=== PATIENT | female | born 1970 | race Caucasian/White ===

== ENCOUNTER 2019-01-18 06:20 | Emergency (ER) | payer BC, SELFPAY ==
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
== END 2019-01-18 08:55 | disposition home or self-care (01) ==
LOC: ERS 06:20
DX: M54.2 Cervicalgia (principal); M54.5 Low back pain; F17.210 Nicotine dependence, cigarettes, uncomplicated; V89.2XXA Person injured in unspecified motor-vehicle accident, traffic, initial encounter
CPT/HCPCS: 72070; 72100; 72125

== ENCOUNTER 2019-03-28 09:09 | Emergency (ER) | payer SELFPAY | END 2019-03-28 10:35 | disposition home or self-care (01) | LOC: ERS 09:09 | DX: H66.92 Otitis media, unspecified, left ear (principal) | CPT/HCPCS: 99282 ==

== ENCOUNTER 2020-03-19 13:14 | Emergency (ER) | payer OTHER | END 2020-03-19 15:00 | disposition home or self-care (01) | LOC: ERS 13:14 | DX: H66.93 Otitis media, unspecified, bilateral (principal) | CPT/HCPCS: 99282 ==

== ENCOUNTER 2020-10-26 11:15 | Emergency (ER) | payer BC, SELFPAY ==
[2020-10-26] MEDS ORDERED: Iopamidol-370 76% 500 ML 1 ML ONE (11:16)
[2020-10-26] MEDS ORDERED: Acetaminophen 500 MG TAB ONE (11:51)
[2020-10-26 11:59] LABS: #Eosinphils 0.2 thou/uL (0.0-0.7); #Lymphocytes 2.1 thou/uL (1.20-3.40); #Monocytes 0.6 thou/uL (0.11-0.59); #Neutrophils 10.6 thou/uL (1.40-6.50); %Basophils 0.3 % (0.0-1.0); %Eosinophils 1.3 % (0.0-10.0); %Lymphocytes 15.3 % (21.0-51.0); %Monocytes 4.7 % (0.0-10.0); %Neutrophils 78.5 % (42.0-75.0); Hemoglobin 12.9 g/dL (12.0-16.0); Mean Corpuscular HGB CONC 33.6 g/dL (32.0-36.0); Mean Corpuscular Hemoglobin 31.8 pg (27.0-31.0); Mean Corpuscular Volume 94.6 fL (78.0-98.0); Mean Platelet Volume 6.6 fL (7.4-10.4); Platelet Count 421 thou/uL (130-400); RBC Distribution Width 12.5 % (11.5-14.5); Red Blood Cell (RBC) Count 4.08 mill/uL (4.20-5.40); White Blood Cell (WBC) Count 13.5 thou/uL (4.8-10.8)
[2020-10-26 12:05] LABS: PTT 34.1 sec (22.9-36.1); Prothrombin Time 13.1 sec (12.0-14.7)
[2020-10-26 12:09] LABS: BHCG - Serum Negative (NEGATIVE); Pregs Control Background? CLEAR/WHITE (CLR/WHITE); Pregs Control Bar Appear? YES (CONTROL BAR)
[2020-10-26 12:19] LABS: ALT (SGPT) 53 U/L (8-55); AST (SGOT) 28 U/L (5-34); Albumin 4.5 g/dL (3.5-5.0); Alkaline Phosphatase 97 U/L (40-110); Anion Gap 14 mmol/L (10-20); BUN (Urea Nitrogen) 9 mg/dL (7.0-18.7); Bilirubin, Total 0.3 mg/dL (0.2-1.2); Calc. Creatinine Clearance 0 mL/min (70-130); Calcium 9.9 mg/dL (7.8-10.44); Carbon Dioxide 27 mmol/L (22-29); Chloride 101 mmol/L (98-107); Globulin 3.1 g/dL (2.4-3.5); Glucose 140 mg/dL (70-105); Potassium 3.8 mmol/L (3.5-5.1); Protein, Total 7.6 g/dL (6.0-8.3); Sodium 138 mmol/L (136-145)
[2020-10-26 12:34] LABS: Thyroid Stimulating Hormone 0.9134 uIU/mL (0.35-4.94)
--- NOTE | 2020-10-26 12:45 | CT ---
Exam: Head CT without contrast HISTORY: Left arm tingling. Nausea and vomiting and headache times a day COMPARISON: none FINDINGS: Hemorrhage: No intraparenchymal hemorrhage or extra-axial hematoma. Brain parenchyma: Cortical shen-white matter differentiation is preserved. No mass effect or midline shift. Basilar cisterns are patent. Ventricular system: Ventricles and sulci are patent and symmetric. Calvarium: Stable canal up mastoidectomy changes bilaterally. There is opacification of the left midd le ear and residual left mastoid cavity. Sinuses and mastoid air cells: Adequate aeration of the paranasal sinuses IMPRESSION: 1. Bilateral canal wall up mastoidectomies. There is opacification of the left middle ear and left ma stoid cavity. Correlate for infectious or inflammatory process.
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
== END 2020-10-26 14:43 | disposition home or self-care (01) ==
LOC: ERS 11:15
DX: R51.9 Headache, unspecified (principal); R07.9 Chest pain, unspecified; K21.9 Gastro-esophageal reflux disease without esophagitis; E78.5 Hyperlipidemia, unspecified; E78.00 Pure hypercholesterolemia, unspecified; F17.210 Nicotine dependence, cigarettes, uncomplicated
CPT/HCPCS: 36415; 36416; 70450; 71275; 74174; 80053; 83880; 84443; 84484; 84703; 85025; 85610; 85730; 86850; 86900; 86901; 93005; Q9967

== ENCOUNTER 2021-05-15 13:53 | Outpatient (CLI) | payer BC | END 2021-05-15 13:54 | disposition home or self-care (01) | LOC: BICCT 13:53 | PROVIDERS: ATTEND Student in an Organized Health Care Education/Training Program | DX: H70.90 Unspecified mastoiditis, unspecified ear (principal); H74.8X2 Other specified disorders of left middle ear and mastoid; H72.91 Unspecified perforation of tympanic membrane, right ear; M19.09 Primary osteoarthritis, other specified site; Z98.890 Other specified postprocedural states | CPT/HCPCS: 70480 ==

== ENCOUNTER 2022-02-14 11:47 | Inpatient (IN) | payer BC, SELFPAY ==
[~2022-02-14 11:47] MED LIST: Iopamidol-370 76% 500 ML 1 ML ONE
[2022-02-14 12:20] LABS: #Basophils 0.1 thou/uL (0.0-0.2); #Eosinphils 0.3 thou/uL (0.0-0.7); #Lymphocytes 2.7 thou/uL (1.20-3.40); #Monocytes 0.7 thou/uL (0.11-0.59); #Neutrophils 4.9 thou/uL (1.40-6.50); %Basophils 0.7 % (0.0-1.0); %Monocytes 7.5 % (0.0-10.0); %Neutrophils 56.8 % (42.0-75.0); Hemoglobin 12.6 g/dL (12.0-16.0); Mean Corpuscular HGB CONC 34.6 g/dL (32.0-36.0); Mean Corpuscular Hemoglobin 32.6 pg (27.0-31.0); Mean Corpuscular Volume 94.4 fL (78.0-98.0); Mean Platelet Volume 7.1 fL (7.4-10.4); Platelet Count 354 thou/uL (130-400); RBC Distribution Width 12.2 % (11.5-14.5); Red Blood Cell (RBC) Count 3.88 mill/uL (4.20-5.40); White Blood Cell (WBC) Count 8.7 thou/uL (4.8-10.8)
[2022-02-14 12:31] LABS: INR-International Normal Ratio 0.9; Prothrombin Time 12.2 sec (12.0-14.7)
[2022-02-14 12:32] LABS: PTT 36.7 sec (22.9-36.1)
[2022-02-14 12:49] LABS: ALT (SGPT) 18 U/L (8-55); AST (SGOT) 13 U/L (5-34); Albumin 4.4 g/dL (3.5-5.0); Alkaline Phosphatase 91 U/L (40-110); Anion Gap 12 mmol/L (10-20); BUN (Urea Nitrogen) 8 mg/dL (9.8-20.1); Bilirubin, Total 0.3 mg/dL (0.2-1.2); Calc. Creatinine Clearance 0 mL/min (70-130); Calcium 9.8 mg/dL (7.8-10.44); Carbon Dioxide 24 mmol/L (22-29); Chloride 104 mmol/L (98-107); Globulin 3.1 g/dL (2.4-3.5); Glucose 101 mg/dL (70-105); Protein, Total 7.5 g/dL (6.0-8.3); Sodium 136 mmol/L (136-145)
[2022-02-14] MEDS ORDERED: Labetalol HCl 100 MG/20 ML VIAL SLOW IVP PRN (13:32)
[2022-02-14] MEDS ORDERED: hydrALAZINE 20 MG/ML VIAL SLOW IVP PRN (13:32)
[2022-02-14] MEDS ORDERED: Aspirin Chewable 81 MG TAB ONE (13:39)
[2022-02-14] MEDS ORDERED: Ondansetron ODT 4 MG TAB PO PRN (14:03)
[2022-02-14] MEDS ORDERED: Artificial Tear Sol 15 ML BOT EA EYE PRN (14:03)
[2022-02-14] MEDS ORDERED: Bisacodyl 5 MG TAB PO PRN (14:03)
[2022-02-14] MEDS ORDERED: Senokot S 8.6-50 MG TAB PO PRN (14:03)
[2022-02-14] MEDS ORDERED: Calcium Carbonate 500 MG ChewTAB PO PRN (14:03)
[2022-02-14] MEDS ORDERED: Acetaminophen 650 MG Suppository PR PRN (14:03)
[2022-02-14] MEDS ORDERED: Moisturizing Cream (Eucerin) 113 GM JAR TOP PRN (14:03)
[2022-02-14] MEDS ORDERED: Enoxaparin Sodium 40 MG/0.4 ML SYRINGE SC SCH (15:15)
[2022-02-14] MEDS ORDERED: Azithromycin 250 MG TAB PO SCH (15:15)
[2022-02-14 15:18] LABS: Troponin I Less than 0.010 ng/mL (< 0.028)
[2022-02-14 18:05] VITALS: BMI 31.8
[2022-02-14 18:31] LABS: SARS-CoV-2 NAA Rapid Test Not Detected (NotDetected)
[2022-02-14 18:43] LABS: Troponin I Less than 0.010 ng/mL (< 0.028)
[2022-02-14] MEDS: Nicotine 14 MG PATCH TD SCH (19:12)
[2022-02-14] MEDS: Acetaminophen 325 MG TAB PO PRN (19:12)
[2022-02-14] MEDS: Atorvastatin Calcium 40 MG TAB PO SCH (20:39)
[2022-02-15] MEDS: Acetaminophen 325 MG TAB PO PRN ×2 (05:50→21:00)
[2022-02-15 06:03] LABS: Anion Gap 12 mmol/L (10-20); BUN (Urea Nitrogen) 9 mg/dL (9.8-20.1); Calc. Creatinine Clearance 95 mL/min (70-130); Calcium 9.2 mg/dL (7.8-10.44); Carbon Dioxide 24 mmol/L (22-29); Cardiac Risk 8.8 (Less than 4.5); Chloride 105 mmol/L (98-107); Cholesterol 291 mg/dl (< 200 Desired); Glucose 106 mg/dL (70-105); HDL Cholesterol 33 mg/dL (>60 Neg Risk); Magnesium 2.2 mg/dL (1.6-2.6); Phosphorus 3.2 mg/dL (2.3-4.7); Sodium 137 mmol/L (136-145); Triglycerides 430 mg/dL (Less than 150)
[2022-02-15 06:11] LABS: LDL Cholesterol, Calculated 172 mg/dL
[2022-02-15] MEDS: Azithromycin 250 MG TAB PO SCH (08:34)
[2022-02-15] MEDS: Aspirin 81 mg Enteric Coated Tablet PO SCH (08:34)
[2022-02-15] MEDS: Enoxaparin Sodium 40 MG/0.4 ML SYRINGE SC SCH (08:36)
[2022-02-15 15:14] LABS: Hemoglobin A1c 5.6 % (4.0-6.0)
[2022-02-15] MEDS: Nicotine 14 MG PATCH TD SCH (15:47)
[2022-02-15] MEDS: Atorvastatin Calcium 40 MG TAB PO SCH (21:00)
[2022-02-16 06:12] LABS: #Basophils 0.1 thou/uL (0.0-0.2); #Eosinphils 0.3 thou/uL (0.0-0.7); #Lymphocytes 2.7 thou/uL (1.20-3.40); #Monocytes 0.6 thou/uL (0.11-0.59); %Basophils 0.8 % (0.0-1.0); %Eosinophils 3.9 % (0.0-10.0); %Lymphocytes 35.1 % (21.0-51.0); %Monocytes 7.4 % (0.0-10.0); %Neutrophils 52.8 % (42.0-75.0); Hemoglobin 13.8 g/dL (12.0-16.0); Mean Corpuscular HGB CONC 33.6 g/dL (32.0-36.0); Mean Corpuscular Hemoglobin 32.3 pg (27.0-31.0); Mean Corpuscular Volume 95.9 fL (78.0-98.0); Mean Platelet Volume 7.2 fL (7.4-10.4); Platelet Count 355 thou/uL (130-400); RBC Distribution Width 12.3 % (11.5-14.5); Red Blood Cell (RBC) Count 4.26 mill/uL (4.20-5.40); White Blood Cell (WBC) Count 7.6 thou/uL (4.8-10.8)
[2022-02-16 06:34] LABS: Anion Gap 12 mmol/L (10-20); BUN (Urea Nitrogen) 10 mg/dL (9.8-20.1); Calc. Creatinine Clearance 95 mL/min (70-130); Calcium 10.1 mg/dL (7.8-10.44); Carbon Dioxide 26 mmol/L (22-29); Chloride 104 mmol/L (98-107); Glucose 102 mg/dL (70-105); Potassium 4.2 mmol/L (3.5-5.1); Sodium 138 mmol/L (136-145)
[2022-02-16 08:03] VITALS: TEMP 97
[2022-02-16] MEDS ORDERED: Clopidogrel Bisulfate 75 MG TAB PO SCH (09:00)
[2022-02-16] MEDS ORDERED: Lisinopril 5 MG TAB PO SCH (09:00)
[2022-02-16] MEDS: Aspirin 81 mg Enteric Coated Tablet PO SCH (09:01)
[2022-02-16] MEDS: Azithromycin 250 MG TAB PO SCH (09:01)
[2022-02-16] MEDS: Enoxaparin Sodium 40 MG/0.4 ML SYRINGE SC SCH (09:03)
[2022-02-16 12:35] VITALS: BP 154/98
== END 2022-02-16 15:50 | disposition home or self-care (01) | DRG 66 ==
LOC: ERS 11:47 → NEURO 13:40 → OBSVTOIN 02-15 18:04
PROVIDERS: ADMIT Family Medicine; ATTEND Internal Medicine
DX: I63.419 Cerebral infarction due to embolism of unspecified middle cerebral artery (principal); Z20.822 Contact with and (suspected) exposure to COVID-19; H91.90 Unspecified hearing loss, unspecified ear; F17.210 Nicotine dependence, cigarettes, uncomplicated; R29.810 Facial weakness; R47.1 Dysarthria and anarthria; G83.24 Monoplegia of upper limb affecting left nondominant side; E78.1 Pure hyperglyceridemia; R13.12 Dysphagia, oropharyngeal phase; E78.5 Hyperlipidemia, unspecified; Z79.899 Other long term (current) drug therapy; Z79.82 Long term (current) use of aspirin; Z79.02 Long term (current) use of antithrombotics/antiplatelets; Z88.6 Allergy status to analgesic agent; Z82.3 Family history of stroke; Z80.0 Family history of malignant neoplasm of digestive organs; Z90.710 Acquired absence of both cervix and uterus; Z71.6 Tobacco abuse counseling
CPT/HCPCS: 36415; 36416; 70450; 70496; 70498; 70551; 80048; 80053; 80061; 83036; 83735; 84100; 84443; 84484; 85025; 85610; 85730; 93005; 93306; 94760; 96372; G0378; J1650; Q9967; U0002

== ENCOUNTER 2022-03-16 11:10 | Emergency (ER) | payer SELFPAY ==
[2022-03-16] MEDS ORDERED: Ketorolac Tromethamine 30 MG/ML VIAL ONE (11:45)
[2022-03-16 12:00] LABS: #Basophils 0.1 thou/uL (0.0-0.2); #Eosinphils 0.3 thou/uL (0.0-0.7); #Lymphocytes 2.3 thou/uL (1.20-3.40); #Monocytes 0.5 thou/uL (0.11-0.59); #Neutrophils 4.1 thou/uL (1.40-6.50); %Basophils 0.8 % (0.0-1.0); %Eosinophils 3.7 % (0.0-10.0); %Lymphocytes 31.6 % (21.0-51.0); %Monocytes 6.6 % (0.0-10.0); %Neutrophils 57.3 % (42.0-75.0); Hemoglobin 12.8 g/dL (12.0-16.0); Mean Corpuscular HGB CONC 33.2 g/dL (32.0-36.0); Mean Corpuscular Hemoglobin 31.3 pg (27.0-31.0); Mean Corpuscular Volume 94.4 fL (78.0-98.0); Mean Platelet Volume 6.5 fL (7.4-10.4); Platelet Count 447 thou/uL (130-400); RBC Distribution Width 12.3 % (11.5-14.5); Red Blood Cell (RBC) Count 4.09 mill/uL (4.20-5.40); White Blood Cell (WBC) Count 7.2 thou/uL (4.8-10.8)
[2022-03-16 12:12] LABS: BHCG - Serum Negative (NEGATIVE); Pregs Control Background? CLEAR/WHITE (CLR/WHITE); Pregs Control Bar Appear? YES (CONTROL BAR)
[2022-03-16 12:21] LABS: ALT (SGPT) 15 U/L (8-55); AST (SGOT) 13 U/L (5-34); Albumin 4.2 g/dL (3.5-5.0); Alkaline Phosphatase 119 U/L (40-110); Anion Gap 13 mmol/L (10-20); BUN (Urea Nitrogen) 7 mg/dL (9.8-20.1); Bilirubin, Total 0.4 mg/dL (0.2-1.2); Calc. Creatinine Clearance 0 mL/min (70-130); Carbon Dioxide 26 mmol/L (22-29); Chloride 99 mmol/L (98-107); Estimated GFR 91; Globulin 3.2 g/dL (2.4-3.5); Glucose 96 mg/dL (70-105); Lipase 25 U/L (8-78); Potassium 4.3 mmol/L (3.5-5.1); Protein, Total 7.4 g/dL (6.0-8.3); Sodium 134 mmol/L (136-145)
[2022-03-16 13:58] LABS: Bilirubin Negative (Negative); Blood, Urine Negative (Negative); Clarity Turbid (Clear); Glucose, Urine (Dipstick) Normal (Negative); Ketone, Urine Negative (Negative); Leukocyte 25 Leu/uL (Negative); Nitrite Negative (Negative); Protein, Urine (Dipstick) Negative (Neg-Trace); Specific Gravity, Urine 1.012 (1.002-1.036); Squamous Epithelial 0-3 HPF (0-3); Urobilinogen Normal mg/dL (Less than 2); WBC/HPF 0-3 HPF (0-3); pH, Urine 6.5 (5.0-9.0)
[2022-03-16 13:59] LABS: Bacteria/HPF 1+ HPF (None Seen)
== END 2022-03-16 15:19 | disposition home or self-care (01) ==
LOC: ERS 11:10
DX: N12 Tubulo-interstitial nephritis, not specified as acute or chronic (principal); K21.9 Gastro-esophageal reflux disease without esophagitis; G43.909 Migraine, unspecified, not intractable, without status migrainosus; E78.5 Hyperlipidemia, unspecified; F17.210 Nicotine dependence, cigarettes, uncomplicated
CPT/HCPCS: 74176; 80053; 81003; 81015; 83690; 84703; 85025; 87086; 93005; 96374; J1885